=== PATIENT | female | born 1965 | race Caucasian/White ===

== ENCOUNTER 2023-06-18 09:23 | Day surgery (SDC) | payer OTHER ==
[~2023-06-18] VITALS: Ht 175.3 cm; Wt 71.4 kg
[2023-06-18] MEDS ORDERED: EUTHYROX50 MCG (10:02)
[2023-06-18] MEDS ORDERED: PANCREAZE DR 21 EAC3 (10:03)
== END 2023-06-18 11:45 | disposition home or self-care (01) ==
LOC: ORSCSDS 09:23
PROVIDERS: Internal Medicine Gastroenterology
PROC: 0DB78ZX Excision of Stomach, Pylorus, Via Natural or Artificial Opening Endoscopic, Diagnostic (ICD-10-PCS; principal; 2023-06-18 11:00)
PROC: 0DB98ZX Excision of Duodenum, Via Natural or Artificial Opening Endoscopic, Diagnostic (ICD-10-PCS; principal; 2023-06-18 11:00)
PROC: 0DBN8ZX Excision of Sigmoid Colon, Via Natural or Artificial Opening Endoscopic, Diagnostic (ICD-10-PCS; principal; 2023-06-18 11:00)
DX: R19.7 Diarrhea, unspecified (principal); R10.84 Generalized abdominal pain; K29.70 Gastritis, unspecified, without bleeding; K63.5 Polyp of colon; K44.9 Diaphragmatic hernia without obstruction or gangrene; K57.30 Diverticulosis of large intestine without perforation or abscess without bleeding; K64.8 Other hemorrhoids; E03.9 Hypothyroidism, unspecified; Z87.891 Personal history of nicotine dependence; Z79.899 Other long term (current) drug therapy
CPT/HCPCS: 88305; 88342; J2704; J7120